=== PATIENT | female | born 2000 | race African-American/Black ===

== ENCOUNTER 2021-09-22 21:25 | Emergency (ER) | payer OTHER ==
[2021-09-22] MEDS ORDERED: Ibuprofen 200 MG TAB ONE (23:07)
[2021-09-22] MEDS ORDERED: Acetaminophen 500 MG TAB ONE (23:08)
== END 2021-09-22 23:55 | disposition home or self-care (01) ==
LOC: CSHERS 21:25
DX: M79.671 Pain in right foot (principal)

== ENCOUNTER 2021-09-30 22:00 | Emergency (ER) | payer OTHER | END 2021-09-30 22:49 | disposition left against medical advice (07) | LOC: CSHERS 22:00 | DX: Z53.21 Procedure and treatment not carried out due to patient leaving prior to being seen by health care provider (principal) ==

== ENCOUNTER 2021-12-07 14:24 | Emergency (ER) | payer OTHER | END 2021-12-07 16:20 | disposition home or self-care (01) | LOC: CSHERS 14:24 | DX: L29.2 Pruritus vulvae (principal) | CPT/HCPCS: 99283 ==

== ENCOUNTER 2022-02-03 21:20 | Emergency (ER) | payer OTHER ==
[~2022-02-03 21:20] MED LIST: Iopamidol 300 61% 100 ML VIAL FS ONE
[2022-02-03 22:20] LABS: Bilirubin Neg (Negative); Blood, Urine 10 (Negative); Clarity Slightly Cloudy (Clear); Glucose, Urine (Dipstick) Normal (Negative); Ketone, Urine Negative (Negative); Leukocyte 500 (Negative); Nitrite Negative (Negative); Protein, Urine (Dipstick) Negative (Neg-Trace); Specific Gravity, Urine 1.015 (1.002-1.036); Urobilinogen Normal mg/dL (Less than 2)
[2022-02-03 22:29] LABS: Bacteria/HPF 2+ HPF (None Seen); Mucous/LPF None Seen LPF (<2+); WBC/HPF Greater than 50 HPF (0-3)
[2022-02-03 22:34] LABS: #Basophils 0.1 10x3/uL (0.0-0.2); #Monocytes 0.5 10x3/uL (0.0-1.1); #Neutrophils 4.6 10x3/uL (1.5-8.4); %Basophils 0.6 % (0.0-2.0); %Eosinophils 0.4 % (0.0-6.0); %Lymphocytes 39.1 % (18.0-47.0); %Monocytes 5.4 % (0.0-10.0); %Neutrophils 54.3 % (40.0-75.0); Hemoglobin 12.1 g/dL (12.0-15.5); Mean Corpuscular HGB CONC 31.8 g/dL (32.0-36.0); Mean Corpuscular Hemoglobin 28.5 pg (27.0-33.0); Mean Corpuscular Volume 89.6 fl (81.6-98.3); Platelet Count 300 10x3/uL (150-450); RBC Distribution Width 13.5 % (11.5-14.5); Red Blood Cell (RBC) Count 4.25 10x6/uL (3.90-5.03); White Blood Cell (WBC) Count 8.5 10x3/uL (3.5-10.5)
[2022-02-03 22:40] LABS: BHCG - Serum Negative (NEGATIVE); Pregs Control Background? CLEAR/WHITE (CLR/WHITE); Pregs Control Bar Appear? YES (CONTROL BAR)
[2022-02-03 22:49] LABS: ALT (SGPT) 15 U/L (8-55); AST (SGOT) 18 U/L (5-34); Albumin 4.1 g/dL (3.5-5.0); Alkaline Phosphatase 77 U/L (40-110); Anion Gap 13 mmol/L (10-20); BUN (Urea Nitrogen) 7 mg/dL (7.0-18.7); Bilirubin, Total 0.3 mg/dL (0.2-1.2); Calc. Creatinine Clearance 0 mL/min (70-130); Calcium 9.7 mg/dL (7.8-10.44); Carbon Dioxide 23 mmol/L (22-29); Chloride 104 mmol/L (98-107); Glucose 85 mg/dL (70-105); Lipase 13 U/L (8-78); Potassium 4.2 mmol/L (3.5-5.1); Protein, Total 7.1 g/dL (6.0-8.3); Sodium 136 mmol/L (136-145)
[2022-02-03] MEDS ORDERED: Ketorolac Tromethamine 30 MG/ML VIAL ONE (22:58)
== END 2022-02-04 00:23 | disposition home or self-care (01) ==
LOC: CSHERS 21:20
DX: N39.0 Urinary tract infection, site not specified (principal)
CPT/HCPCS: 36415; 74177; 80053; 81003; 81015; 83690; 84703; 85025; 96374; J1885; Q9967

== ENCOUNTER 2022-05-24 14:13 | Emergency (ER) | payer OTHER ==
[2022-05-24] MEDS ORDERED: Ketorolac Tromethamine 30 MG/ML VIAL ONE (15:08)
[2022-05-24 15:25] LABS: #Eosinphils 0.1 10x3/uL (0.0-0.5); #Monocytes 0.8 10x3/uL (0.0-1.1); #Neutrophils 6.2 10x3/uL (1.5-8.4); %Basophils 0.3 % (0.0-2.0); %Eosinophils 0.9 % (0.0-6.0); %Lymphocytes 38.1 % (18.0-47.0); %Monocytes 6.8 % (0.0-10.0); %Neutrophils 53.6 % (40.0-75.0); Hemoglobin 11.9 g/dL (12.0-15.5); Mean Corpuscular HGB CONC 32.7 g/dL (32.0-36.0); Mean Corpuscular Hemoglobin 28.8 pg (27.0-33.0); Mean Corpuscular Volume 88.1 fl (81.6-98.3); Mean Platelet Volume 8.5 fl (7.4-10.4); Platelet Count 325 10x3/uL (150-450); RBC Distribution Width 13.1 % (11.5-14.5); Red Blood Cell (RBC) Count 4.13 10x6/uL (3.90-5.03); White Blood Cell (WBC) Count 11.6 10x3/uL (3.5-10.5)
[2022-05-24 15:58] LABS: ALT (SGPT) 19 U/L (8-55); Alkaline Phosphatase 74 U/L (40-110); Anion Gap 17 mmol/L (10-20); BUN (Urea Nitrogen) 13 mg/dL (7.0-18.7); Bilirubin, Total 0.2 mg/dL (0.2-1.2); Calc. Creatinine Clearance 0 mL/min (70-130); Calcium 9.5 mg/dL (7.8-10.44); Carbon Dioxide 19 mmol/L (22-29); Chloride 107 mmol/L (98-107); Estimated GFR 128; Globulin 3.8 g/dL (2.4-3.5); Glucose 88 mg/dL (70-105); Potassium 4.7 mmol/L (3.5-5.1); Protein, Total 7.8 g/dL (6.0-8.3); Sodium 138 mmol/L (136-145)
[2022-05-24 16:02] LABS: AST (SGOT) 25 U/L (5-34)
[2022-05-24 16:23] LABS: Bilirubin Neg (Negative); Blood, Urine 250 (Negative); Clarity Clear (Clear); Glucose, Urine (Dipstick) Normal (Negative); Ketone, Urine Negative (Negative); Leukocyte 100 (Negative); Nitrite Negative (Negative); Protein, Urine (Dipstick) Negative (Neg-Trace); Specific Gravity, Urine 1.025 (1.002-1.036); Urobilinogen Normal mg/dL (Less than 2)
[2022-05-24 16:27] LABS: Pregnancy Test - Urine (BHCG) Negative (Negative)
[2022-05-24 16:28] LABS: Pregu Control Background? CLEAR/WHITE (CLR/WHITE); Pregu Control Bar Appear? YES (CONTROL BAR); Specific Gravity 1.025 (1.002-1.036)
[2022-05-24 16:33] LABS: Bacteria/HPF 1+ HPF (None Seen); Calcium Oxalate Crystals Rare HPF (None Seen); Mucous/LPF Rare LPF (<2+)
== END 2022-05-24 16:53 | disposition home or self-care (01) ==
LOC: CSHERS 14:13
DX: R51.9 Headache, unspecified (principal)
CPT/HCPCS: 71045; 80053; 81003; 81015; 81025; 85025; 93005; 96374; J1885

== ENCOUNTER 2022-06-22 14:14 | Emergency (ER) | payer OTHER | END 2022-06-22 16:35 | disposition home or self-care (01) | LOC: CSHERS 14:14 | DX: S93.401A Sprain of unspecified ligament of right ankle, initial encounter (principal); X58.XXXA Exposure to other specified factors, initial encounter ==

== ENCOUNTER 2022-07-19 11:01 | Emergency (ER) | payer OTHER | END 2022-07-19 12:52 | disposition home or self-care (01) | LOC: CSHERS 11:01 | DX: M79.645 Pain in left finger(s) (principal) ==

== ENCOUNTER 2022-11-18 19:09 | Emergency (ER) | payer OTHER ==
[2022-11-18] MEDS ORDERED: Ibuprofen 800 MG TAB ONE (20:07)
[2022-11-18] MEDS ORDERED: Bicillin LA 1.2 MILLION UNITS/2 ML SYRINGE IM SCH (21:15)
== END 2022-11-18 20:35 | disposition home or self-care (01) ==
LOC: CSHERS 19:09
DX: J03.90 Acute tonsillitis, unspecified (principal)
CPT/HCPCS: 87081; 87430; 96372; 99283; J0561

== ENCOUNTER 2023-08-10 09:27 | Emergency (ER) | payer OTHER | END 2023-08-10 10:43 | disposition home or self-care (01) | LOC: CSHERS 09:27 | DX: M25.571 Pain in right ankle and joints of right foot (principal) ==

== ENCOUNTER 2023-11-16 21:38 | Emergency (ER) | payer OTHER, SELFPAY ==
[2023-11-16 23:18] LABS: SARS-CoV-2 NAA Rapid Test Not Detected (NotDetected)
== END 2023-11-16 23:09 | disposition home or self-care (01) ==
LOC: CSHERS 21:38
DX: J02.9 Acute pharyngitis, unspecified (principal)
CPT/HCPCS: 87430; 99283

== ENCOUNTER 2023-12-05 22:16 | Emergency (ER) | payer SELFPAY | END 2023-12-05 22:53 | disposition home or self-care (01) | LOC: CSHERS 22:16 | DX: S60.011A Contusion of right thumb without damage to nail, initial encounter (principal); W23.0XXA Caught, crushed, jammed, or pinched between moving objects, initial encounter; Y99.0 Civilian activity done for income or pay | CPT/HCPCS: 99283 ==

== ENCOUNTER 2024-04-25 21:32 | Emergency (ER) | payer SELFPAY ==
[2024-04-25] MEDS ORDERED: Prochlorperazine 10 MG/2 ML VIAL ONE (22:01)
[2024-04-25] MEDS ORDERED: diphenhydrAMINE 50 MG/ML VIAL ONE (22:01)
== END 2024-04-25 22:28 | disposition home or self-care (01) ==
LOC: CSHERS 21:32
DX: G43.919 Migraine, unspecified, intractable, without status migrainosus (principal)
CPT/HCPCS: 96374; 96375; J0780; J1200

== ENCOUNTER 2024-06-28 22:45 | Emergency (ER) | payer SELFPAY ==
[2024-06-28 23:56] LABS: Bilirubin Neg (Negative); Blood, Urine 250 (Negative); Glucose, Urine (Dipstick) Normal (Negative); Ketone, Urine Negative (Negative); Leukocyte 500 (Negative); Nitrite Negative (Negative); Protein, Urine (Dipstick) 30 mg/dl (Neg-Trace); Specific Gravity, Urine 1.025 (1.005-1.030); Urobilinogen Normal mg/dL (Less than 2)
[2024-06-28 23:57] LABS: Clarity Cloudy (Clear)
[2024-06-28 23:58] LABS: Pregnancy Test - Urine (BHCG) Negative (Negative); Pregu Control Background? CLEAR/WHITE (CLR/WHITE); Pregu Control Bar Appear? YES (CONTROL BAR); Specific Gravity 1.025 (1.002-1.036)
[2024-06-29] MEDS ORDERED: Ibuprofen 200 MG TAB ONE (00:06)
[2024-06-29] MEDS ORDERED: Cephalexin 250 MG CAP ONE (00:06)
[2024-06-29 00:10] LABS: CAUTI Indications for Culture Pelvic or flank pain; RBC/HPF 21-50 HPF (0-3)
[2024-06-29 00:18] LABS: Bacteria/HPF 2+ HPF (None Seen); Mucous/LPF 3+ LPF (<2+)
[2024-06-29 00:19] LABS: Urine Culture Reflex Yes Yes
== END 2024-06-29 00:15 | disposition home or self-care (01) ==
LOC: CSHERS 22:45
DX: N39.0 Urinary tract infection, site not specified (principal)
CPT/HCPCS: 81001; 81025; 87086; 99284

== ENCOUNTER 2024-07-24 23:29 | Emergency (ER) | payer SELFPAY | END 2024-07-25 00:23 | disposition home or self-care (01) | LOC: CSHERS 23:29 | DX: J06.9 Acute upper respiratory infection, unspecified (principal) | CPT/HCPCS: 99283 ==

== ENCOUNTER 2025-08-21 14:48 | Emergency (ER) | payer BC, SELFPAY ==
[2025-08-21] MEDS ORDERED: Acetaminophen 500 MG TAB ONE (15:26)
== END 2025-08-21 17:00 | disposition home or self-care (01) ==
LOC: CSHERS 14:48
DX: B34.9 Viral infection, unspecified (principal); Z20.828 Contact with and (suspected) exposure to other viral communicable diseases
CPT/HCPCS: 71046; 87081; 87428; 87430; 99283